=== PATIENT | female | born 1995 | race African-American/Black ===

== ENCOUNTER → 2017-01-13 | Emergency (ER) | payer OTHER ==
[~2017-01-13] MED LIST: ALBUTEROL SO4 0.083% IH SOL 2.5 MG/3 ML VIAL.NEB. NEB ONE; ALBUTEROL SO4 2.5/IPRATROPIUM 0.5 INH SOL 3 ML VIAL.NEB. NEB ONE; AZITHROMYCIN 250 MG TABLET (FP) PO ONE; PSEUDOEPHEDRINE HCL 30 MG TABLET PO ONE; PSEUDOEPHEDRINE HCL 60 MG TABLET ONE; predniSONE 20 MG TABLET (UD) PO ONE
--- NOTE | 2017-01-13 05:12 | PDOC ---
History of Present Illness - General Stated Complaint: DIFFICULTY BREATHING, CHEST PAIN Time Seen by Provider: 01/13/17 05:06 History Source: Patient Exam Limitations: No Limitations - History of Present Illness Initial Comments: 01/13/17 05:07 21yo Female patient w PmHx: Asthma presents to ED c/o cold, cough, sore throat, congestion, and trouble breathing x 3 weeks. Patient report OTC Robitussin and Ibuprofen with no relief. LNMP: 3 weeks ago. Denies fever, CP, ABd pain, n/v/d, rash, or any other complaints at this time. Timing/Duration: reports: week (3) Severity: reports: mild Possible Cause: Yes: illness exposure Modifying Factors: worse with: activity, albuterol inhaler, albuterol nebulizer , antibiotics, coughing, lying down, oxygen, rest, other Associated Symptoms: reports: cough, nasal congestion, sore throat Past History - Travel Traveled outside of the country in the last 30 days: No Close contact w/someone who was outside of country & ill: No - Past Medical History Allergies/Adverse Reactions: Allergies Allergy/AdvReac Type Severity Reaction Status Date / Time No Known Allergies Allergy Verified 01/13/17 06:32 Home Medications: Ambulatory Orders Albuterol Sulfate Inhaler - [Ventolin Hfa Inhaler -] 1 - 2 inh PO Q4H PRN #1 inhaler 01/13/17 Azithromycin [Zithromax -] 250 mg PO DAILY #4 tab 01/13/17 Prednisone [Deltasone -] 40 mg PO DAILY #8 tablet 01/13/17 Respiratory Specific PMHX - Complaint Specific PMHX Angina: No Bronchitis: No Pneumonia: No Pulmonary Embolus: No TB (Tuberculosis): No Review of Systems - Review of Systems Able to Perform ROS?: Yes Is the patient limited Wolof proficient: No Constitutional: No: Chills, Fever Respiratory: Yes: Cough, Other (Trouble Breathing). No: Shortness of Breath, Wheezing, Productive cough Cardiac (ROS): No: Chest Pain, Lightheadedness, Palpitations, Syncope, Chest Tightness ABD/GI: No: Constipated, Diarrhea, Nausea, Poor Appetite, Poor Fluid Intake, Vomiting : No: Dysuria, Hematuria Musculoskeletal: No: Back Pain Integumentary: No: Bruising, Erythema, Rash Neurological: No: Headache, Numbness, Paresthesia, Seizure, Tremors, Weakness, Ataxia, Dizziness All Other Systems: Reviewed and Negative *Physical Exam - Physical Exam General Appearance: Yes: Nourished, Appropriately Dressed. No: Apparent Distress, Mild Distress, Moderate Distress, Severe Distress HEENT: positive: EOMI, MACK, Normal ENT Inspection, Normal Voice, Symmetrical, TMs Normal, Pharynx Normal, Nasal Congestion, Rhinorrhea. negative: Pharyngeal Erythema, Tonsillar Exudate, Tonsillar Erythema, Sinus Tenderness, TM Bulging, TM Dull, TM Erythema Neck: positive: Trachea midline, Normal Thyroid, Supple. negative: Tender, Rigid, Decreased range of motion, Stridor, Lymphadenopathy (R), Lymphadenopathy (L), Tender lateral Respiratory/Chest: positive: Decreased Breath Sounds. negative: Respiratory Distress, Accessory Muscle Use, Labored Respiration, Rapid RR, Crackles, Rales, Rhonchi, Stridor, Wheezing Cardiovascular: positive: Regular Rhythm, Regular Rate. negative: JVD, Murmur Musculoskeletal: positive: Normal Inspection. 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 intact, Fully Oriented, Alert, Normal Mood/ Affect, Normal Response, Motor Strength 5/5 *DC/Admit/Observation/Transfer Diagnosis at time of Disposition: Bronchitis - Discharge Dispostion Disposition: HOME Condition at time of disposition: Improved Admit: No - Prescriptions Prescriptions: Prednisone [Deltasone -] 40 mg PO DAILY #8 tablet Albuterol Sulfate Inhaler - [Ventolin Hfa Inhaler -] 1 - 2 inh PO Q4H PRN #1 inhaler PRN Reason: DIFF BREATHING Azithromycin [Zithromax -] 250 mg PO DAILY #4 tab - Patient Instructions Printed Discharge Instructions: DI for Acute Bronchitis Additional Instructions: FOLLOW UP WITH YOUR DOCTOR NEEDED. TAKE MEDICATIONS PRESCRIBED. DRINK PLENTY FLUIDS. Print Language: TONGAN
[2017-01-13 05:35] VITALS: BP 111/76; PULSE 84; TEMP 98.3; BMI 22.4
[2017-01-13 06:10] LABS: URINE APPEARANCE CLEAR; URINE BILIRUBIN NEGATIVE (NEGATIVE); URINE BLOOD NEGATIVE (NEGATIVE); URINE COLOR LT. YELLOW; URINE GLUCOSE (UA) NEGATIVE (NEGATIVE); URINE KETONE NEGATIVE (NEGATIVE); URINE NITRITE NEGATIVE (NEGATIVE); URINE PROTEIN NEGATIVE (NEGATIVE); URINE UROBILINOGEN 0.2 E.U/dl E.U./dl (0.2-1.0)
[2017-01-13 06:26] LABS: URINE LEUK ESTERASE TRACE (NEGATIVE)
== END | disposition home or self-care (01) ==
LOC: JER 04:43
PROC: 3E0F7GC Introduction of Other Therapeutic Substance into Respiratory Tract, Via Natural or Artificial Opening (ICD-10-PCS; principal; 2017-01-13)
PROC: 3E0F7GC Introduction of Other Therapeutic Substance into Respiratory Tract, Via Natural or Artificial Opening (ICD-10-PCS; 2017-01-13)
DX: J40 Bronchitis, not specified as acute or chronic (principal)
CPT/HCPCS: 81003; 81015; 84703; 87070; 87430; 94640; 99281-25